=== PATIENT | male | born 1955 | race African-American/Black ===

== ENCOUNTER 2017-08-23 05:44 | Inpatient (IN) ==
[2017-08-23] MEDS ORDERED: FUROSEMIDE 40 MG/4 ML VIAL ONE (05:54)
[2017-08-23] MEDS ORDERED: hydrALAZINE 20 MG/1 ML VIAL ONE (05:54)
[2017-08-23] MEDS ORDERED: ALBUTEROL/IPRATROPIUM 3 ML NEB RESP TX STA (06:29)
[2017-08-23] MEDS ORDERED: FUROSEMIDE 40 MG/4 ML VIAL IV STA (06:36)
--- NOTE | 2017-08-23 06:39 | EKG Report ---
Stationary ECG Study [facility] ER Test Date: 08/23/2017 6:05:32 AM Pat Name: JEWELL MCCRAY Department: Room: Gender: M [employer] Survey Worker: : 1955 Requested by: Rolando Clark Order Number: [id number] Reading MD: STEVE NATH Intervals [place] Rate: 73 P: 78 LA: 194 QRS: 66 QRSD: 114 T: 119 QT: 395 QTc: 421 Interpretive Statements SINUS RHYTHM WITH OCCASIONAL VENTRICULAR PREMATURE COMPLEXES INFERIOR MYOCARDIAL INFARCTION, OLD Electronically Signed On 08-23-17 18:53:54 CDT by STEVE NATH [email or web address]
[2017-08-23 06:49] LABS: Basophils # 0.1 10*3/uL (0.0-0.2); Basophils % 0.7 % (0.0-0.8); Eosinophils # 0.2 10*3/uL (0.0-0.87); Hematocrit 48.3 VOL% (42.0-52.0); Hemoglobin 16.2 GM/DL (14.0-18.0); Immature Granulocytes % 0.4 %; Immature Granulocytes Absolute 0.03 #; Lymphocytes # 4.4 10*3/uL (1.4-4.0); Lymphocytes % 54.8 % (21.2-54.2); Mean Corpuscular HGB Conc 33.5 GM/DL (32-36); Mean Corpuscular Hemoglobin 33 PG (27-34); Mean Corpuscular Volume 97.4 FL (87-102); Mean Platelet Volume 10.9 FL (9.6-12.0); Monocytes # 0.9 10*3/uL (0.11-0.8); Monocytes % 11.4 % (1.7-12.7); Neutrophils # 2.5 10*3/uL (1.4-7.4); Neutrophils % 30.7 % (38.7-73.9); Platelet Count 280 T/CUMM (130-400); Red Blood Count 4.96 MC/CUMM (3.8-5.5); Red Cell Distribution Width 15.8 % (9.3-17.3); White Blood Count 8.1 T/CUMM (4-12)
[2017-08-23 07:27] LABS: Albumin 3.1 G/DL (3.4-5.0); Bilirubin,Total 0.6 MG/DL (0.2-1.0); Calcium 8.6 MG/DL (8.5-10.1); Osmolality,Calculated 277.5 MOS/KG (273-304); Potassium 4.1 MMOL/L (3.5-5.1)
[2017-08-23 07:31] LABS: Troponin I Only 0.053 NG/ML (0.00-0.045)
--- NOTE | 2017-08-23 08:00 | Emergency Department Note ---
Arrival - Arrival Chief Complaint: Shortness of Breath Stated Complaint: SOB ED Nursing Triage Note: Pt to triage with complaint of SOB x1 day. Pt denies current respiratory lung problems. Pt says he is also having chest pain rated as a 10 on a 0-10 scale. Pt placed on nonrebreather at 15L. Mode of Arrival: Wheelchair Time Seen by Provider: 08/23/17 06:14 - History of Present Illness HPI Narrative: This is a 62-year-old white male with a history of congestive heart failure, hypertension, previous myocardial infarction, coronary artery bypass graft surgery in 2008 and gastric ulcer who presents with shortness of breath orthopnea dyspnea on exertion of 24 hours duration. When the patient arrived he was diaphoretic and short of breath and a room air O2 sat of 60%. He was placed on BiPAP and given Lasix 80 mg intravenously and slowly improved. Allergies/Adverse Reactions: Allergies Allergy/AdvReac Type Severity Reaction Status Date / Time NEIL Inhibitors Allergy Swelling Verified 08/23/17 05:51 of Lip/Tongue/Throat Home Medications: Home Medications Medication Instructions Recorded Confirmed Type Aspirin [Ecotrin] 81 mg PO DAILY 04/19/15 08/23/17 History Carvedilol [Coreg] 25 mg PO BID 04/19/15 08/23/17 History amLODIPine [Norvasc] 10 mg PO DAILY 04/19/15 08/23/17 History hydrALAZINE TAB [Apresoline Tab] 25 mg PO TID 04/19/15 08/23/17 History hydroCHLOROthiazide 25 mg PO DAILY 04/19/15 08/23/17 History [Hydrochlorothiazide] Albuterol Sulfate [Proair HFA] 2 puff INH Q4HR 09/04/15 08/23/17 History Isosorbide Mononitrate [Isosorbide 60 mg PO DAILY 04/05/17 08/23/17 History Mononitrate ER] Rosuvastatin [Crestor] 10 mg PO DAILY 04/05/17 08/23/17 History Review of System - Review of System Constitutional: Absent: fever, night sweats Eyes: Absent: redness Head/Ears/Nose/Throat: Absent: epistaxis Respiratory: Present: cough, respiratory distress Cardiovascular: Present: chest pain, dyspnea on exertion Gastrointestinal: Absent: diarrhea, constipation Genitourinary male: Absent: dysuria, discharge Musculoskeletal: Absent: joint swelling, lower back pain Skin: Absent: change in color, change in hair/nails Neurological: Absent: numbness, paresthesias Psychiatric: Absent: anxiety, depression Endocrine: Absent: heat intolerance, polydipsia, polyuria Hematological/Lymphatic: Absent: easy bruising, lymphadenopathy Allergic/Immunologic: Absent: urticaria, itchy eyes Medical,Surgical,& Family Hx - Medical History Cardio: History of: Cardiac Dysrhythmia (thinks so, placed on monitor; can't remember (Dr. Regalado)), Hypertension, [place], Cardiovascular Problems (checked above ([place], HTN)) No history of: Aneurysm, Cerebrovascular Disease, Congenital Heart Disease, CHF, CAD, Pacemaker, PVD, Valvular Heart Disease Neurology: No history of: Brain Aneurysm, Cerebral Hemorrhage, Cerebrovascular Accident , Cerebral Palsy, Dementia, Migraine, Multiple Sclerosis, Parkinson's Disease, Peripheral Neuropathy, Seizures, TIA, Vertigo, Neurologocal Cancer Gastrointestinal: History of: Gastrointestinal Bleed (gastric ulcer), GI Problems (TARRY STOOLS AND COFFEE GROUND EMESIS x's 3 days) No history of: Bowel Obstruction, Clostridium Difficile, Crohn's Disease, Diverticulitis/ Diverticulosis, Esophageal Varices, GERD, Hemorrhoids, Hematochezia, Hepatitis, Liver Problems, Pancreatitis, Polyps, Ulcerative Colitis, Gastrointestinal Cancer Musculoskeletal: No history of: Amputation Hematology: No history of: Blood Transfusion Reaction Other: No history of: Anesthesia Reactions - Surgical History Cardiac Surgeries: Sugical HX of: Cardiac Catheterization, Cardiac Surgery ( cabg 2008) Patient Denies: Femoral-Popliteal Bypass Graft, Carotid Endarterectomy, Internal Defibrillator, Vascular Access Devices Thoracic Surgeries: Patient denies;: Kidney (Renal Surgery), Lithotripsy, Nephrectomy, Organ Transplant, Lobectomy Neurologic Surgeries: Patient denies: Brain Aneurysm, Cerebral Hemorrhage, Neurologic Surgery HEENT Surgeries: Patient denies: Carotid Endarterectomy, Eye Surgery, Tonsilectomy & Adenoidectomy Abdominal Surgeries: Patient denies: Abdominal Surgery, Appendectomy, Cholecystectomy, Colonoscopy , Gastric Bypass Surgery, EGD, Hernia Repair, Splenectomy Reproductive Surgeries: Patient denies;: Cystoscopy, Genitourinary Surgery, Prostate Surgery Orthopedic Surgeries: Patient denies;: Implanted Devices, Orthopedic Surgery, Spinal Surgery, Total Hip Replacement, Total Knee Replacement - Family History Family History: Reports;: Family Diabetes (mother, sister), Family Heart Disease (mother), Family Hypertension Denies;: Family Anesthesia Reaction, Family Cancer, Family Psychiatric Problems, Family Stroke - Social History Smoking Status: Current every day smoker Frequency of Alcohol Use: None Type of Drug Use: None Exam Vital Signs: Vital Signs Temperature 96 F L 08/23/17 05:45 Pulse Rate 60 08/23/17 08:59 Respiratory Rate 18 08/23/17 08:59 Blood Pressure 134/76 08/23/17 08:59 O2 Sat by Pulse Oximetry 96 08/23/17 08:59 - General General appearance: anxious, in distress - Head Head exam: Present: atraumatic, normocephalic - Eye Eye exam: Present: PERRL, EOMI - ENT ENT exam: Present: normal exam, normal oropharynx - Neck Neck exam: Present: normal inspection, full ROM - Chest Chest inspection: Present: normal inspection - Respiratory Respiratory exam: Present: rales - Cardiovascular Cardiovascular exam: Present: tachycardia - Abdominal Exam Abdominal exam: Present: soft, normal bowel sounds - Extremities Exam Extremities exam: Present: normal inspection - Back Exam Back exam: Present: normal inspection, full ROM - Neurological Exam Neurological exam: Present: alert, oriented X3, CN II-XII intact - Psychiatric Psychiatric exam: Present: normal affect, normal mood - Skin Skin exam: Present: warm, dry Course Course Narrative: The patient has an elevated BNP and slightly elevated troponin. Electrocardiogram does not show acute ischemic changes. The patient came in good congestive heart failure with hypoxemia was placed on BiPAP was given Lasix and his clinical picture rapidly improved. The case was discussed with the hospitalist who agreed to admit the patient to the hospital for evaluation for the cause of his acute onset congestive heart failure. Results - Labs CBC & BMP: 08/23/17 05:50 08/23/17 05:50 Disposition Clinical Impression: Congestive heart failure, Hypoxemia Disposition: Still a Patient
[2017-08-23] MEDS ORDERED: hydrALAZINE 20 MG/1 ML VIAL IV STA (08:09)
[2017-08-23 08:16] LABS: Eosinophils 2 % (0-10); Giant Platelets Few; Hypochromasia Slight; Lymphocytes 55 % (20-55); Platelet Estimate Adequate; Segmented Neutrophils 33 % (50-85); Total Cells Counted 100
--- NOTE | 2017-08-23 09:34 | Hospitalist History & Physical ---
Assessment and Plan (1) Nicotine dependence Status: Acute Assessment and plan: Spoke with patient in great detail and discussed the merits of smoking cessation. The patient acknowledges the needs to stop; however states that they "told me that 8 years ago". Nicotine patch has been ordered for use during the inpatient admission. Current Visit: Yes (2) Congestive heart failure Status: Acute Assessment and plan: The patient has extensive cardiovascular disease. The patient reported recent evaluation by his hydraulics engineer and was suggested that he may have peripheral vascular disease. At the time of ED presentation, the patient was complaining of chest discomfort and shortness of breath. The patient was diuresed and his respiratory status improved. We will resume the patient's home medications as previously ordered. In addition, we will continue gentle diuresis. We will obtain echocardiogram, lipid panel, serial cardiac enzymes, hemoglobin A1C, and consult cardiology to evaluate and assist. Current Visit: Yes History of Present Illness Chief complaint: Shortness of breath History of present illness: This is a chronically ill 62-year-old male that presented to the ED at [facility] this morning for the evaluation of shortness of breath and chest pain. Patient has a medical history significant for nicotine dependence, coronary artery disease, hypertension, peripheral vascular disease, myocardial infarction, gastric ulcer, gastrointestinal bleed, herpes zoster, and chronic sinusitis.Patient has a surgical history of cardiac catheterization , coronary artery bypass graft in 2008, colonoscopy, esophagogastroduodenoscopy. Patient reported onset of symptoms 1 day prior to admission. He reported a gradual onset of shortness of breath they became very severe this morning prompting him to present to the ED for further evaluation. At the time of ED presentation, the patient was noted to be grossly short of breath and complaining of severe chest pain. Nitroglycerin was applied topically, aspirin 325 mg by mouth was given, and supplemental oxygen via nonrebreather mask was placed. The patient's respiratory status failed to improve. The patient was subsequently placed on BiPAP. Labs were obtained which were significant for chloride 109, glucose 157, AST 178, ALT 175, alkaline phosphatase 139, troponin 0 0.053, BNP 768, albumin 3.1. Chest x-ray suggested cardiac decompensation After brief discussion with both Dr. Whalen and Dr. Mcpherson, the patient will be admitted to the hospitalist service for continuation of care. Due to the severity of the patient's cardiovascular disease a cardiology consultation has been requested to evaluate and assist during the clinical encounter. Home medications have been reviewed and reconciled. CODE STATUS discussed; patient is FULL CODE. Home Medications Medication Instructions Recorded Confirmed Type Aspirin [Ecotrin] 81 mg PO DAILY 04/19/15 04/05/17 History Carvedilol [Coreg] 25 mg PO BID 04/19/15 04/05/17 History Potassium Chloride Cap/Tab [K Dur] 10 meq PO DAILY 04/19/15 04/05/17 History amLODIPine [Norvasc] 10 mg PO DAILY 04/19/15 04/05/17 History hydrALAZINE TAB [Apresoline Tab] 25 mg PO TID 04/19/15 04/05/17 History hydroCHLOROthiazide 25 mg PO DAILY 04/19/15 04/05/17 History [Hydrochlorothiazide] Albuterol Sulfate [Proair HFA] 2 puff INH Q4HR 09/04/15 04/05/17 History Benzonatate [Tessalon] 100 mg PO Q6H 09/04/15 04/05/17 History Fluticasone 50 Mcg Nasal Mar Lin 2 spray BOTH NARES DAILY PRN 09/04/15 04/05/17 History [Flonase Nasal Mar Lin] Nitroglycerin Sl Tab [Nitrostat] 0.4 mg SL Q5M PRN 09/04/15 04/05/17 History Acyclovir Cap/Tab [Zovirax Cap/Tab] 800 mg PO 5X DAILY #35 tablet 04/05/17 Rx HYDROcodone/ACETAMIN 7.5-325 1 tablet PO Q6H PRN #20 tablet 04/05/17 Rx [[place] 7.5-325] Isosorbide Mononitrate [Isosorbide 60 mg PO DAILY 04/05/17 04/05/17 History Mononitrate ER] Rosuvastatin [Crestor] 10 mg PO DAILY 04/05/17 04/05/17 History Allergies Allergy/AdvReac Type Severity Reaction Status Date / Time NEIL Inhibitors Allergy Swelling Verified 08/23/17 05:51 of Lip/Tongue/Throat Medical,Surgical,& Family Hx - Medical History Cardio: History of: Cardiac Dysrhythmia (thinks so, placed on monitor; can't remember (Dr. Regalado)), Hypertension, [place], Cardiovascular Problems (checked above (PR, HTN)) No history of: Aneurysm, Cerebrovascular Disease, Congenital Heart Disease, CHF, CAD, Pacemaker, PVD, Valvular Heart Disease Neurology: No history of: Brain Aneurysm, Cerebral Hemorrhage, Cerebrovascular Accident , Cerebral Palsy, Dementia, Migraine, Multiple Sclerosis, Parkinson's Disease, Peripheral Neuropathy, Seizures, TIA, Vertigo, Neurologocal Cancer Gastrointestinal: History of: Gastrointestinal Bleed (gastric ulcer), GI Problems (TARRY STOOLS AND COFFEE GROUND EMESIS x's 3 days) No history of: Bowel Obstruction, Clostridium Difficile, Crohn's Disease, Diverticulitis/ Diverticulosis, Esophageal Varices, GERD, Hemorrhoids, Hematochezia, Hepatitis, Liver Problems, Pancreatitis, Polyps, Ulcerative Colitis, Gastrointestinal Cancer Musculoskeletal: No history of: Amputation Hematology: No history of: Blood Transfusion Reaction Other: No history of: Anesthesia Reactions - Surgical History Cardiac Surgeries: Sugical HX of: Cardiac Catheterization, Cardiac Surgery ( cabg 2008) Patient Denies: Femoral-Popliteal Bypass Graft, Carotid Endarterectomy, Internal Defibrillator, Vascular Access Devices Thoracic Surgeries: Patient denies;: Kidney (Renal Surgery), Lithotripsy, Nephrectomy, Organ Transplant, Lobectomy Neurologic Surgeries: Patient denies: Brain Aneurysm, Cerebral Hemorrhage, Neurologic Surgery HEENT Surgeries: Patient denies: Carotid Endarterectomy, Eye Surgery, Tonsilectomy & Adenoidectomy Abdominal Surgeries: Patient denies: Abdominal Surgery, Appendectomy, Cholecystectomy, Colonoscopy , Gastric Bypass Surgery, EGD, Hernia Repair, Splenectomy Reproductive Surgeries: Patient denies;: Cystoscopy, Genitourinary Surgery, Prostate Surgery Orthopedic Surgeries: Patient denies;: Implanted Devices, Orthopedic Surgery, Spinal Surgery, Total Hip Replacement, Total Knee Replacement - Family History Family History: Reports;: Family Diabetes (mother, sister), Family Heart Disease (mother), Family Hypertension Denies;: Family Anesthesia Reaction, Family Cancer, Family Psychiatric Problems, Family Stroke - Social History Smoking Status: Current every day smoker Have you smoked in the last 12 months: Yes Time spent discussing smoking cessation with patient: more than 10 minutes Frequency of Alcohol Use: None Type of Drug Use: None Marital Status: Single Lives With:: Alone Functional capacity: independent ambulation 12 point system: reviewed and no additional remarkable complaints except as stated Exam - Constitutional Vitals: Period Temp Pulse Resp BP Sys/Felton Pulse Ox Last 24 Hr 96 F-96 F 60-87 18-38 134-189/76-104 75-97 General appearance: mild distress, over weight - Head Head exam: Present: normal inspection, normocephalic, atraumatic - Eye Eye exam: Present: EOMI Pupils: Present: BRI, normal accommodation - ENT ENT exam: Present: normal exam, normal external ear exam, normal oropharynx - Neck Neck exam: Present: normal inspection. Absent: lymphadenopathy, meningismus, thyromegaly - Respiratory Respiratory exam: Present: rales - Cardiovascular Cardiovascular exam: Present: bradycardia. Absent: carotid bruit, diastolic murmur, gallop, JVD, regular rate and rhythm, rubs, systolic murmur - GI/Abdominal GI/Abdominal exam: Present: normal bowel sounds, soft - Extremities Exam Extremities exam: Present: normal inspection, normal capillary refill, full ROM , edema (Plus to trace edema noted to bilateral lower extremity) - Back Exam Back exam: Present: normal inspection - Neurological Exam Neurological exam: Present: alert, oriented X3, CN II-XII intact - Psychiatric Psychiatric exam: Present: normal affect, normal mood - Skin Skin exam: Present: normal color, warm, dry Results - Labs CBC & BMP: 08/23/17 05:50 08/23/17 05:50 Lab Results: I have reviewed the past 24 hour labs
[2017-08-23] MEDS ORDERED: POTASSIUM CHLORIDE RIDER 10 MEQ in PREMIX 1 EACH IV PRN (09:38)
[2017-08-23] MEDS ORDERED: MAGNESIUM SULF RIDER 4 GM in PREMIX 1 EACH IV PRN (09:38)
[2017-08-23] MEDS ORDERED: MAGNESIUM SULF RIDER 2 GM in PREMIX 1 EACH IV PRN (09:38)
[2017-08-23] MEDS ORDERED: ALBUTEROL 2.5 MG/3 ML NEB RESP TX PRN (09:38)
[2017-08-23] MEDS ORDERED: methylPREDNISolone SOD SUC 40 MG/1 ML VIAL IV SCH (10:00)
[2017-08-23 10:30] LABS: Risk Ratio 4.3; VLDL CHOLESTEROL 15.8 MG/DL
--- NOTE | 2017-08-23 10:55 | XRay Report ---
History is short of breath Comparison 07/04/2015 The heart is mildly enlarged There are mildly increasing hazy and reticular nodular opacities in the lower third of the chest bilaterally Upper lung portillo are clear Impression: 1. Increasing bilateral basilar infiltrates versus edema. Follow-up recommended PROCEDURE INTERPRETED AT [facility] DEPARTMENT OF RADIOLOGY Final Report Signed by: Dr. Gladis Collier
[2017-08-23] MEDS: amLODIPine 10 MG TABLET PO SCH (12:00)
[2017-08-23] MEDS: CARVEDILOL 25 MG TABLET PO SCH ×2 (12:00→21:20)
[2017-08-23] MEDS: NICOTINE 21 MG/24 HR PATCH TRANSDERM SCH (12:01)
[2017-08-23] MEDS: ALBUTEROL/IPRATROPIUM 3 ML NEB RESP TX SCH ×2 (12:16→19:25)
--- NOTE | 2017-08-23 13:32 | ECHO Report ---
Claudy Wilcox Exam Date: 08/23/2017 11:05 Referring Physician: Technologist: Mariana Hargrove LRTONI Age: 62 Ht (in): 69 Wt (lb): 276 Gender: M Exam Location: [facility] Echo Indications: nicotine dependence, hypoxemia, acute gastric ulcer, sob, CAD, anemia, melena BP: 170 / 74 HR: 62 Rhythm: Sinus Technical Quality: IMPRESSIONS Left ventricular ejection fraction is estimated at 50 %. There is limited endocardial resolution however in some views there may be mild inferior wall hypokinesis. Mild concentric left ventricular hypertrophy with Grade 2 diastolic dysfunction. Aortic valve area is 0.94 cm. Aortic valve mean gradient is 34 mmHg. Moderate aortic valve regurgitation with pressure halftime from 428 msec to 529 msec. Mild tricuspid valve regurgitation. Tricuspid regurgitation velocities suggest a RVSP of 23 mmHg + RAP. MEASUREMENTS (Male / Female) Normal Values 2D ECHO LV Diastolic Diameter PLAX 5.4 cm 4.2 - 5.9 / 3.9 - 5.3 cm LV Systolic Diameter PLAX 3.9 cm LV Fractional Shortening PLAX 28.7 % IVS Diastolic Thickness 1.3 cm 0.6 - 1.0 / 0.6 - 0.9 cm LVPW Diastolic Thickness 1.3 cm 0.6 - 1.0 / 0.6 - 0.9 cm Aortic Root Diameter 2.9 cm LA Systolic Diameter LX 4.9 cm 3.0 - 4.0 / 2.7 - 3.8 cm DOPPLER TR Peak Velocity 239.0 cm/s TR Peak Gradient 22.8 mmHg FINDINGS Left Ventricle Mild concentric left ventricular hypertrophy with Grade 2 diastolic dysfunction. Left ventricular ejection fraction is estimated at 50 %. There is limited endocardial resolution however in some views there may be mild inferior wall hypokinesis. Right Ventricle Normal right ventricular size. Right Atrium Normal right atrial size. Left Atrium Moderately increased left atrial diameter. Mitral Valve Mildly thickened mitral valve with mild mitral regurgitation. Aortic Valve Moderate to severe aortic valve stenosis. Aortic valve area is 0.94 cm. Aortic valve mean gradient is 34 mmHg. Moderate aortic valve regurgitation with pressure halftime from 428 msec to 529 msec.. Tricuspid Valve Morphologically normal tricuspid valve. Mild tricuspid valve regurgitation. Tricuspid regurgitation velocities suggest a RVSP of 23 mmHg + RAP. Pulmonic Valve Pulmonic valve not well visualized. Trace pulmonary valve regurgitation. Pericardium No pericardial effusion. Aorta Normal size aortic root and proximal ascending aorta. Mary Alice Paez (Electronically Signed) Final Date: 23 August 2017 13:31
[2017-08-23 13:49] LABS: Immunoglobulin A 851 MG/DL (70-400); Immunoglobulin G 1590 MG/DL (700-1600); Immunoglobulin M 63 MG/DL (40-230)
[2017-08-23] MEDS: FUROSEMIDE 40 MG/4 ML VIAL IV SCH (15:19)
[2017-08-23] MEDS: hydrALAZINE 25 MG TABLET PO SCH ×2 (15:31→21:20)
[2017-08-23 15:40] LABS: Hepatitis A Ab IgM Quant 0.14 Index; Hepatitis A Ab IgM Result Negative (Negative); Hepatitis B Core IgM Quant 0.11 Index; Hepatitis B Core IgM Result Negative (Negative); Hepatitis B Surface Ag Quant 0.12 Index; Hepatitis B Surface Ag Result Negative (Negative); Hepatitis C Virus Ab Quant 0.07 Index; Hepatitis C Virus Ab Result Negative (Negative)
[2017-08-24] MEDS: ALBUTEROL/IPRATROPIUM 3 ML NEB RESP TX SCH ×4 (01:17→20:45)
[2017-08-24 04:32] LABS: Basophils % 0.2 % (0.0-0.8); Hemoglobin 13.8 GM/DL (14.0-18.0); Immature Granulocytes % 0.6 %; Immature Granulocytes Absolute 0.03 #; Lymphocytes # 1.1 10*3/uL (1.4-4.0); Lymphocytes % 21.2 % (21.2-54.2); Mean Corpuscular HGB Conc 34.5 GM/DL (32-36); Mean Corpuscular Hemoglobin 32 PG (27-34); Mean Corpuscular Volume 93.5 FL (87-102); Mean Platelet Volume 10.7 FL (9.6-12.0); Monocytes # 0.5 10*3/uL (0.11-0.8); Monocytes % 10.4 % (1.7-12.7); Neutrophils # 3.5 10*3/uL (1.4-7.4); Neutrophils % 67.6 % (38.7-73.9); Platelet Count 219 T/CUMM (130-400); Red Blood Count 4.28 MC/CUMM (3.8-5.5); Red Cell Distribution Width 15.2 % (9.3-17.3); White Blood Count 5.2 T/CUMM (4-12)
[2017-08-24 05:06] LABS: Magnesium 1.8 MG/DL (1.8-2.4); Phosphorous 2.8 MG/DL (2.5-4.9)
[2017-08-24 05:08] LABS: Albumin 2.8 G/DL (3.4-5.0); Bilirubin,Total 0.7 MG/DL (0.2-1.0); Calcium 8.6 MG/DL (8.5-10.1); Osmolality,Calculated 287.3 MOS/KG (273-304); Potassium 3.6 MMOL/L (3.5-5.1); Total Protein 7.1 G/DL (6.4-8.3)
[2017-08-24] MEDS ORDERED: hydroCHLOROthiazide 25 MG TABLET PO SCH (09:00)
[2017-08-24] MEDS: FUROSEMIDE 40 MG/4 ML VIAL IV SCH ×2 (09:35→15:40)
[2017-08-24] MEDS: CARVEDILOL 25 MG TABLET PO SCH ×2 (09:36→20:55)
[2017-08-24] MEDS: amLODIPine 10 MG TABLET PO SCH (09:36)
[2017-08-24] MEDS: ISOSORBIDE MONONITRATE 60 MG TABLET PO SCH (09:36)
[2017-08-24] MEDS: ASPIRIN EC 81 MG TABLET PO SCH (09:36)
[2017-08-24] MEDS: NICOTINE 21 MG/24 HR PATCH TRANSDERM SCH (09:36)
[2017-08-24] MEDS: ROSUVASTATIN 10 MG TABLET PO SCH (09:36)
[2017-08-24] MEDS: hydrALAZINE 25 MG TABLET PO SCH ×3 (09:36→20:55)
--- NOTE | 2017-08-24 09:53 | Cardiology Consult Note ---
Assessment and Plan - Time spent with patient Time spent with patient: Greater than 30 minutes (Chart review, exam, documentation and patient discussion) (1) Ischemic cardiomyopathy Status: Chronic Current Visit: Yes (2) Aortic stenosis Status: Chronic Current Visit: Yes Qualifiers: Cardiac valve disease etiology: nonrheumatic Qualified Code(s): I35.0 - Nonrheumatic aortic (valve) stenosis (3) Aortic insufficiency Status: Chronic Current Visit: Yes (4) COPD (chronic obstructive pulmonary disease) Status: Chronic Current Visit: Yes Qualifiers: Emphysema type: unspecified (5) Hepatitis Status: Chronic Current Visit: Yes (6) Peptic ulcer disease Status: Chronic Current Visit: Yes (7) NEIL inhibitor intolerance Status: Chronic Current Visit: Yes (8) Peripheral vascular disease Status: Chronic Current Visit: Yes (9) Dyslipidemia Status: Chronic Current Visit: Yes (10) Congestive heart failure Status: Acute Current Visit: Yes (11) Nicotine dependence Status: Acute Current Visit: Yes (12) Coronary artery disease Status: Chronic Current Visit: No Qualifiers: Coronary Disease-Associated Artery/Lesion type: bypass graft [place] vs. transplanted heart: [place] heart Associated angina: without angina Qualified Code(s): I25.810 - Atherosclerosis of coronary artery bypass graft(s) without angina pectoris History of Present Illness - Data of Consult Patient: known to practice within the last 3 years Consult date: 08/24/17 Requesting Physician: Cristhian Mcpherson Primary care physician: Matt Deluna (Cards - JRod) - Consult Narrative Reason for consult: Heart failure History of present illness: Mr. Wilcox is a 62 year old male with known severe coronary disease following the outpatient setting by Dr. Gabriela Regalado. The patient had coronary bypass grafting by Dr. Gurmeet Azul in 2008. He presents now for worsening dyspnea on exertion and shortness of breath. He denies chest pain he had an EKG shows inferior Q waves he has an echocardiogram shows an ejection fraction of 50% with inferior wall hypokinesis. He is previously had an ejection fraction as low as 40% with severe inferior hypokinesis and mild anterior hypokinesis. His last transthoracic echocardiogram in the office. There is no mention in that study of regional wall motion abnormality.Done on 11/14/2016 showed an ejection fraction of 50-55%. At that time his valve area was estimated to be 0.9 cm and aortic insufficiency was described as mild. His current transthoracic echo is similar however there appears to be slight worsening of his AI. His last left heart catheterization was on 06/10/2013 at [facility] at which time his ejection fraction was 40% was indicated at that time he had severe inferior wall hypokinesis and mild anterior hypokinesis. The heart cath at that time showed 30% distal left main 40% proximal LAD 40% proximal circumflex and mild plaquing in the distal circumflex had a high-grade mid LAD and a patent stent in the first diagonal. His right coronary was 100% occluded as were both of his vein grafts is only patent conduit from his bypass graft was a in situ LYNCH to the LAD. [place] at that cath was in the right femoral artery. The patient denies any chest pain but has had more shortness of breath he continues to smoke. He has had some orthopnea as well. He denies any chest pain. The patient presents for further evaluation. He has a mildly stagnant only elevated troponin echo and EKG as described above. The patient was last seen in the office by Dr. Gabriela Regalado on 08/21/2017 at which time he was scheduled to follow-up in October with ABIs echocardiography and routine labs. Patient was doing well until he recently awakened with dyspnea. He had mild volume overload by his chest radiograph. He denied any chest pain. He states think he can walk as far as he needs to as long as he walks with a slow pace but if he walks at a brisk pace he gets extremely dyspneic with minimal activity. This sounds like this is approximately [place] Heart Association class III symptoms. This is likely from his [place] of the RCA in conjunction with his aortic valvular heart disease. His right-sided pressures appear to be normal. I discussed with the patient and his sister have recommended left heart catheterization because of his acutely becomes a heart failure this may be from his valvular disease or underlying ischemic progressive disease. He is agreeable to proceed. We will arrange for him to have a left heart catheterization in the morning. CC: Abraham Gabriel MD - Home Medications and Allergies Home Medications: Home Medications Medication Instructions Recorded Confirmed Type Aspirin [Ecotrin] 81 mg PO DAILY 04/19/15 08/23/17 History Carvedilol [Coreg] 25 mg PO BID 04/19/15 08/23/17 History amLODIPine [Norvasc] 10 mg PO DAILY 04/19/15 08/23/17 History hydrALAZINE TAB [Apresoline Tab] 25 mg PO TID 04/19/15 08/23/17 History hydroCHLOROthiazide 25 mg PO DAILY 04/19/15 08/23/17 History [Hydrochlorothiazide] Albuterol Sulfate [Proair HFA] 2 puff INH Q4HR 09/04/15 08/23/17 History Isosorbide Mononitrate [Isosorbide 60 mg PO DAILY 04/05/17 08/23/17 History Mononitrate ER] Rosuvastatin [Crestor] 10 mg PO DAILY 04/05/17 08/23/17 History Allergies/Adverse Reactions: Allergies Allergy/AdvReac Type Severity Reaction Status Date / Time NEIL Inhibitors Allergy Swelling Verified 08/23/17 05:51 of Lip/Tongue/Throat - Constitutional Constitutional: Absent: anorexia, chills, weight gain, weight loss - EENT Eyes: Absent: diplopia, loss of vision Ears: Absent: decreased hearing, ear discharge Nose, mouth and throat: Absent: dysphagia, nasal congestion - Cardiovascular Cardiovascular: Present: claudication, dyspnea, dyspnea on exertion, orthopnea. Absent: chest pain at rest, chest pain with activity, edema - Respiratory Respiratory: Present: dyspnea, dyspnea on exertion, snoring - Gastrointestinal Gastrointestinal: Absent: abdominal pain, dyspepsia, melena, nausea, odynophagia - Genitourinary Genitourinary: Absent: difficulty urinating, hematuria, nocturia, testicular pain - Musculoskeletal Musculoskeletal: Absent: arthralgias, joint swelling - Neurological Neurological: Absent: abnormal gait, disequilibrium - Psychiatric Psychiatric: Absent: difficulty concentrating - Endocrine Endocrine: Absent: cold intolerance, heat intolerance - Hematologic/Lymphatic Hematologic/Lymphatic: Absent: easy bleeding, easy bruising Medical,Surgical,& Family Hx - Medical History Cardio: History of: Cardiac Dysrhythmia (thinks so, placed on monitor; can't remember (Dr. Regalado)), Hypertension, [place], Cardiovascular Problems (/AI) No history of: Aneurysm, Cerebrovascular Disease, Congenital Heart Disease, CHF, CAD, Pacemaker, PVD, Valvular Heart Disease Neurology: No history of: Brain Aneurysm, Cerebral Hemorrhage, Cerebrovascular Accident , Cerebral Palsy, Dementia, Migraine, Multiple Sclerosis, Parkinson's Disease, Peripheral Neuropathy, Seizures, TIA, Vertigo, Neurologocal Cancer Gastrointestinal: History of: Gastrointestinal Bleed (gastric ulcer), GI Problems (TARRY STOOLS AND COFFEE GROUND EMESIS x's 3 days) No history of: Bowel Obstruction, Clostridium Difficile, Crohn's Disease, Diverticulitis/ Diverticulosis, Esophageal Varices, GERD, Hemorrhoids, Hematochezia, Hepatitis, Liver Problems, Pancreatitis, Polyps, Ulcerative Colitis, Gastrointestinal Cancer Musculoskeletal: No history of: Amputation Hematology: No history of: Blood Transfusion Reaction Other: No history of: Anesthesia Reactions - Surgical History Cardiac Surgeries: Sugical HX of: Cardiac Catheterization, Cardiac Surgery ( cabg 2008) Patient Denies: Femoral-Popliteal Bypass Graft, Carotid Endarterectomy, Internal Defibrillator, Vascular Access Devices Thoracic Surgeries: Patient denies;: Kidney (Renal Surgery), Lithotripsy, Nephrectomy, Organ Transplant, Lobectomy Neurologic Surgeries: Patient denies: Brain Aneurysm, Cerebral Hemorrhage, Neurologic Surgery HEENT Surgeries: Patient denies: Carotid Endarterectomy, Eye Surgery, Tonsilectomy & Adenoidectomy Abdominal Surgeries: Patient denies: Abdominal Surgery, Appendectomy, Cholecystectomy, Colonoscopy , Gastric Bypass Surgery, EGD, Hernia Repair, Splenectomy Reproductive Surgeries: Patient denies;: Cystoscopy, Genitourinary Surgery, Prostate Surgery Orthopedic Surgeries: Patient denies;: Implanted Devices, Orthopedic Surgery, Spinal Surgery, Total Hip Replacement, Total Knee Replacement - Family History Family History: Reports;: Family Diabetes (mother, sister), Family Heart Disease (mother), Family Hypertension Denies;: Family Anesthesia Reaction, Family Cancer, Family Psychiatric Problems, Family Stroke - Social History Smoking Status: Current every day smoker Frequency of Alcohol Use: None Type of Drug Use: None Marital Status: Single Lives With:: Significant Other Functional capacity: independent ambulation Physical Examination Vital Signs Temp Pulse Resp BP Pulse Ox 96 F L 87 28 H 189/104 75 L 08/23/17 05:45 08/23/17 05:45 08/23/17 05:45 08/23/17 05:45 08/23/17 05:45 General: Present: Appears Well, Other (He is obese) HEENT: Absent: Jaundice, Pallor Neck: Present: Supple Neck, Midline Trachea Cardiac: Present: Reg Rate and Rhythm, S1/S2, Systolic Murmur (Has a murmur of and AI. He has a single second heart sound) Lungs: Present: Scattered Rhonchi Neuro: Present: Cranial Nerve 2-12 Intact Abdomen: Present: Soft, Active Bowel Sounds Skin: Present: Clear Extremities: Present: Normal Gait, No Clubbing. Absent: Edema Result/EKG - Labs CBC & BMP: 08/24/17 03:15 08/24/17 03:16 Labs: Laboratory Results - last 24 hr 08/23/17 08/23/17 08/23/17 09:52 09:52 09:52 WBC RBC Hgb Hct MCV MCH MCHC RDW Plt Count MPV Neut % (Auto) Lymph % (Auto) Moore % (Auto) Eos % (Auto) Baso % (Auto) Neut # (Auto) Lymph # (Auto) Moore # (Auto) Eos # (Auto) Baso # (Auto) Immature Gran % Nucleated RBC % Immature Gran # Nucleated RBCs # Immature Plt Fraction Sodium Potassium Chloride Carbon Dioxide Anion Gap BUN Creatinine GFR Calculation BUN/Creatinine Ratio Glucose Hemoglobin A1c 5.9 Calculated Osmolality Calcium Phosphorus Magnesium Total Bilirubin AST ALT Alkaline Phosphatase Troponin I 0.266 H D Total Protein Albumin Globulin Albumin/Globulin Ratio Triglycerides 79 Cholesterol 189 LDL Cholesterol 127.0 VLDL Cholesterol 15.8 HDL Cholesterol 44 Heart Disease Risk Ratio 4.30 IgG IgA IgM Hepatitis A IgM Ab Hep Bs Antigen Hep B Core IgM Ab Hepatitis C Antibody 08/23/17 08/23/17 08/23/17 12:53 12:53 12:53 WBC RBC Hgb Hct MCV MCH MCHC RDW Plt Count MPV Neut % (Auto) Lymph % (Auto) Moore % (Auto) Eos % (Auto) Baso % (Auto) Neut # (Auto) Lymph # (Auto) Moore # (Auto) Eos # (Auto) Baso # (Auto) Immature Gran % Nucleated RBC % Immature Gran # Nucleated RBCs # Immature Plt Fraction Sodium Potassium Chloride Carbon Dioxide Anion Gap BUN Creatinine GFR Calculation BUN/Creatinine Ratio Glucose Hemoglobin A1c Calculated Osmolality Calcium Phosphorus Magnesium Total Bilirubin AST ALT Alkaline Phosphatase Troponin I 0.310 H Total Protein Albumin Globulin Albumin/Globulin Ratio Triglycerides Cholesterol LDL Cholesterol VLDL Cholesterol HDL Cholesterol Heart Disease Risk Ratio IgG 1590 IgA 851 H IgM 63 Hepatitis A IgM Ab Negative Hep Bs Antigen Negative Hep B Core IgM Ab Negative Hepatitis C Antibody Negative 08/24/17 08/24/17 08/24/17 03:15 03:15 03:16 WBC 5.2 D RBC 4.28 Hgb 13.8 L D Hct 40.0 L MCV 93.5 MCH 32 MCHC 34.5 RDW 15.2 Plt Count 219 D MPV 10.7 Neut % (Auto) 67.6 Lymph % (Auto) 21.2 Moore % (Auto) 10.4 Eos % (Auto) 0.0 Baso % (Auto) 0.2 Neut # (Auto) 3.5 Lymph # (Auto) 1.1 L Moore # (Auto) 0.5 Eos # (Auto) 0.0 Baso # (Auto) 0.0 Immature Gran % 0.6 Nucleated RBC % 0.0 Immature Gran # 0.03 Nucleated RBCs # 0.00 Immature Plt Fraction 0.0 Sodium 141 Potassium 3.6 Chloride 107 Carbon Dioxide 26 Anion Gap 11.6 BUN 14 Creatinine 0.80 GFR Calculation 154 BUN/Creatinine Ratio 17.00 Glucose 205 H Hemoglobin A1c Calculated Osmolality 287.3 Calcium 8.6 Phosphorus 2.8 Magnesium 1.8 Total Bilirubin 0.70 AST 119 H ALT 142 H Alkaline Phosphatase 112 Troponin I Total Protein 7.1 Albumin 2.8 L Globulin 4.3 H Albumin/Globulin Ratio 0.6 L Triglycerides Cholesterol LDL Cholesterol VLDL Cholesterol HDL Cholesterol Heart Disease Risk Ratio IgG IgA IgM Hepatitis A IgM Ab Hep Bs Antigen Hep B Core IgM Ab Hepatitis C Antibody - EKG EKG results: interpreted by me (inferior Q waves) Specialty Discharge - Follow Up or Referrals
[2017-08-24] MEDS ORDERED: diphenhydrAMINE CAP 25 MG CAPSULE PO ONE (10:05)
[2017-08-24] MEDS ORDERED: DIAZEPAM 5 MG TABLET PO ONE (10:05)
--- NOTE | 2017-08-24 11:38 | Hospitalist Progress Note ---
Assessment and Plan (1) Congestive heart failure Status: Acute Assessment and plan: Anticipate left heart cath tomorrow morning. Continue diuretic therapy and outpatient medicines for now. Current Visit: Yes Qualifiers: Congestive heart failure type: systolic Congestive heart failure chronicity : acute on chronic Qualified Code(s): I50.23 - Acute on chronic systolic ( congestive) heart failure Hospitalist: Subjective Interval history: The patient was admitted to the hospital with heart failure symptoms. The patient has less shortness of breath today after IV diuretic medications. I reviewed the plan of care with himself and his family at the room. Dr. Paez anticipates left heart cath in the morning. Exam - Constitutional Vitals: Period Temp Pulse Resp BP Sys/Felton Pulse Ox Last 24 Hr 96.4 F-99.1 F 51-72 16-20 132-170/73-85 89-99 General appearance: no acute distress - Respiratory Respiratory exam: Present: clear to auscultation bilaterally - Cardiovascular Cardiovascular exam: Present: regular rate and rhythm - GI/Abdominal GI/Abdominal exam: Present: normal bowel sounds Results - Labs CBC & BMP: 08/24/17 03:15 08/24/17 03:16 Lab Results: I have reviewed the past 24 hour labs Specialty Discharge - Follow Up or Referrals
--- NOTE | 2017-08-24 11:46 | XRay Report ---
Portable chest Exam date: 08/24/2017 518 AM Indication: Shortness of breath, cough Comparison: Previous day at 0604 hours Findings: Cardiomediastinal contours are stable with sternotomy wires and midline. Reticular nodular interstitial and parenchymal opacities within the lung bases are slightly improved. No acute osseous abnormalities. Visualized upper abdomen demonstrates no acute pathology. Impression: Improving interstitial and parenchymal densities within the lung bases PROCEDURE INTERPRETED AT [facility] DEPARTMENT OF RADIOLOGY Final Report Signed by: Robert Cronin
[2017-08-25] MEDS: ALBUTEROL/IPRATROPIUM 3 ML NEB RESP TX SCH ×4 (01:06→20:28)
[2017-08-25 05:12] LABS: Basophils % 0.6 % (0.0-0.8); Eosinophils # 0.1 10*3/uL (0.0-0.87); Eosinophils % 1.6 % (0.00-10.9); Hematocrit 39.8 VOL% (42.0-52.0); Hemoglobin 13.6 GM/DL (14.0-18.0); Immature Granulocytes % 0.3 %; Immature Granulocytes Absolute 0.02 #; Lymphocytes # 2.5 10*3/uL (1.4-4.0); Lymphocytes % 40.5 % (21.2-54.2); Mean Corpuscular HGB Conc 34.2 GM/DL (32-36); Mean Corpuscular Hemoglobin 32 PG (27-34); Mean Corpuscular Volume 94.1 FL (87-102); Mean Platelet Volume 10.3 FL (9.6-12.0); Monocytes # 0.9 10*3/uL (0.11-0.8); Monocytes % 13.6 % (1.7-12.7); Neutrophils # 2.7 10*3/uL (1.4-7.4); Neutrophils % 43.4 % (38.7-73.9); Platelet Count 234 T/CUMM (130-400); Red Blood Count 4.23 MC/CUMM (3.8-5.5); Red Cell Distribution Width 15.4 % (9.3-17.3); White Blood Count 6.2 T/CUMM (4-12)
[2017-08-25 05:45] LABS: Calcium 8.4 MG/DL (8.5-10.1); Osmolality,Calculated 283.1 MOS/KG (273-304); Potassium 3.7 MMOL/L (3.5-5.1)
[2017-08-25] MEDS: SODIUM CHLORIDE 0.45% 1,000 ML IV SCH ×2 (06:00→20:59)
[2017-08-25 07:23] LABS: Immunoglobulin A (Chem) 851 MG/DL (70-400); Immunoglobulin G (Chem) 1590 MG/DL (700-1600); Immunoglobulin M (Chem) 63 MG/DL (40-230)
[2017-08-25] MEDS ORDERED: HEPARIN/NACL 0.9% 2 UNITS/ML 1,000 ML IV ONE (08:20)
[2017-08-25] MEDS ORDERED: LIDOCAINE 1% 20 ML VIAL ONE (08:20)
[2017-08-25] MEDS ORDERED: DIAZEPAM 5 MG TABLET ONE (08:22)
[2017-08-25] MEDS ORDERED: diphenhydrAMINE CAP 50 MG CAPSULE ONE (08:22)
[2017-08-25] MEDS: FUROSEMIDE 40 MG/4 ML VIAL IV SCH ×2 (08:26→15:05)
[2017-08-25] MEDS: CARVEDILOL 25 MG TABLET PO SCH ×2 (08:27→20:59)
[2017-08-25] MEDS: amLODIPine 10 MG TABLET PO SCH (08:29)
[2017-08-25] MEDS: ASPIRIN EC 81 MG TABLET PO SCH (08:29)
[2017-08-25] MEDS: ROSUVASTATIN 10 MG TABLET PO SCH (08:29)
[2017-08-25] MEDS: ISOSORBIDE MONONITRATE 60 MG TABLET PO SCH (08:29)
[2017-08-25] MEDS: hydrALAZINE 25 MG TABLET PO SCH (08:29)
[2017-08-25] MEDS ORDERED: HYDROmorphone 2 MG/1 ML VIAL ONE (08:39)
[2017-08-25] MEDS ORDERED: MIDAZOLAM 2 MG/2 ML VIAL ONE (08:40)
[2017-08-25] MEDS ORDERED: SODIUM CHLORIDE 0.9% 1,000 ML IV SCH (09:30)
--- NOTE | 2017-08-25 10:14 | Cardiac Catheterization ---
Date of Procedure:: 08/25/17 Procedure: CLINICAL SUMMARY: The patient has known multivessel coronary artery disease with previous bypass surgery. He presented with new/worsening congestive heart failure and a mild bump in cardiac enzymes. He is undergoing cardiac catheterization for definitive coronary artery assessment and possible revascularization. PROCEDURES PERFORMED: 1. Right femoral percutaneous arteriotomy 2. Left heart catheterization. 3. Resting hemodynamics. 4. Left ventriculography. 5. Coronary arteriography. 6. Right femoral arteriogram. 7. Angio-Seal closure of the right femoral artery. 8. Coronary artery bypass graft angiography. DESCRIPTION OF PROCEDURE: After obtaining informed consent, the patient was brought to the cardiac catheterization lab where the right groin was prepped and draped in the usual sterile manner. Using IV sedation, local anesthesia, and Modified Seldinger technique, a needle was placed in the right femoral artery and a sheath was positioned without difficulty. A left coronary catheter was advanced over a guidewire under fluoroscopic control to the ascending aorta where angiograms of the left coronary artery were undertaken in multiple views. After adequate angiograms, this catheter was withdrawn and a right coronary catheter was advanced over a guidewire under fluoroscopic control to the ascending aorta with angiograms of the RCA were undertaken in numerous projections. After adequate angiograms, this catheter was removed and a pigtail ventriculographic catheter was advanced over a guidewire under fluoroscopic control to the aortic valve and left ventricular pressures were measured. After adequate pressures were measured, this catheter was used to perform left ventriculography in the BELL projection. This catheter was then withdrawn under hemodynamic monitoring and removed from the patient. A right femoral arteriogram was performed showing severe iliofemoral arterial disease. The sheath was then removed and hemostasis was achieved with direct pressure. The patient was transferred back to the room having suffered no immediate complications. HEMODYNAMICS: See the accompanying data sheet. CORONARY ARTERIOGRAPHY: LEFT MAIN: The left main coronary artery is a large caliber vessel, which trifurcates into the left anterior descending, ramus intermedius, and left circumflex coronary arteries. The left main coronary artery has an eccentric 50 % stenosis in its mid segment. LEFT CIRCUMFLEX: The left circumflex coronary artery is a moderate-sized vessel which gives off 2 moderate-sized obtuse marginal branches. The first obtuse marginal is occluded in its mid segment with faint collateral filling distally. The proximal circumflex coronary artery has diffuse disease of up to 40%. RAMUS INTERMEDIUS: This is a large-caliber vessel which courses over the anterolateral wall. There is an area of stenosis of around 70-80% in the mid segment of this vessel. LEFT ANTERIOR DESCENDING: The left anterior descending artery is large caliber vessel which diffuse disease in the proximal area with competitive filling distally from the patent left internal mammary artery. RIGHT CORONARY ARTERY: The right coronary artery is occluded at its origin. Saphenous vein graft to right coronary artery: This graft is occluded at its origin. Saphenous vein graft to the circumflex: This graft is occluded at its origin. Left internal mammary to left anterior descending graft: This graft is widely patent throughout its course. LEFT VENTRICULOGRAPHY: Left ventricular ejection fraction is estimated at approximately 45% with mild global hypokinesis. PERIPHERAL ARTERIOGRAPHY: Right femoral arteriogram shows occlusion of the vessel just distal to the catheter placement with extensive calcification. There is collateral filling. IMPRESSIONS: 1. Left main and three-vessel coronary artery disease as described above. 2. 2 of 3 bypass grafts are in the right coronary artery occluded. The left internal mammary artery graft to the left anterior descending artery is widely patent. 3. Moderate to severe aortic stenosis. Peak to peak gradient on this study was approximately 30 mmHg. 4. Mildly reduced left ventricular ejection fraction of approximately 45%. 5. Severe right iliofemoral arterial disease as described above. PLAN: At this time, the patient has diffuse coronary and peripheral vascular disease. For now, I am going to try to manage the patient with optimal medical therapy. I will discuss with him the possibility of needing an aortic valve procedure in the future. If he does get an aortic valve procedure revascularization of the ramus intermedius, obtuse marginal/circumflex, and right coronary arteries could be considered. He could also be considered for formal peripheral vascular studies and/or revascularization depending on his clinical symptoms. Smoking cessation and compliance will be addressed with the patient as well. Anesthesia: minimal conscious sedation Surgeon / Physician: Earl Blackman Estimated blood loss: minimal Condition: stable Disposition: floor - Medications / Follow-up
[2017-08-25] MEDS: NICOTINE 21 MG/24 HR PATCH TRANSDERM SCH (10:35)
[2017-08-25] MEDS ORDERED: ACETAMINOPHEN 325 MG TABLET PO PRN (14:52)
--- NOTE | 2017-08-25 15:00 | Hospitalist Progress Note ---
Assessment and Plan (1) Coronary artery disease Status: Chronic Current Visit: Yes Qualifiers: Coronary Disease-Associated Artery/Lesion type: bypass graft [place] vs. transplanted heart: [place] heart Associated angina: without angina Qualified Code(s): I25.810 - Atherosclerosis of coronary artery bypass graft(s) without angina pectoris (2) Ischemic cardiomyopathy Status: Chronic Assessment and plan: EF 45% with grade 2 diastolic dysfunction. Current Visit: Yes (3) Tobacco use disorder Status: Acute Current Visit: Yes (4) COPD (chronic obstructive pulmonary disease) Status: Chronic Current Visit: Yes Qualifiers: Emphysema type: unspecified (5) NEIL inhibitor intolerance Status: Chronic Current Visit: Yes Hospitalist: Subjective Interval history: Patient seen and examined. No acute events overnight. Case discussed with nursing staff. Labs reviewed. Patient seen status post a left heart cath. Report noted with significant vascular abnormalities without potential for intervention. Continue aggressive medical management including smoking cessation. This was discussed with the patient for 4 minutes. He reports a headache, not related to the smoking cessation counseling. Exam - Constitutional Vitals: Period Temp Pulse Resp BP Sys/Felton Pulse Ox Last 24 Hr 96.6 F-98.6 F 46-75 16-20 96-151/43-77 90-99 Exam: Constitutional System: No distress. No tremulousness. Head: Normocephalic, atraumatic. Ears, Nose and Throat System: No pain or tenderness. No epistaxis or discharge Eyes System: Pupils equal, round, and reactive. Extraocular muscles intact. Neck: Supple, without adenopathy, No jugular venous distention. No thyromegaly, neck mass, or prior surgery apparent. Respiratory System: Chest clear to auscultation. Cardiovascular System: Heart with regular rate and rhythm. No murmur. GI System: Abdomen soft, nontender. Normo active bowel sounds present. Musculoskeletal System: limbs with no pedal edema. Full distal pulses. Normal capillary refill. Neurological System: No discernable sensory deficit. No aphasia Psychiatric System: Conversation is rational Results - Labs CBC & BMP: 08/25/17 04:33 08/25/17 04:33 Lab Results: I have reviewed the past 24 hour labs Specialty Discharge - Follow Up or Referrals
[2017-08-26] MEDS: ALBUTEROL/IPRATROPIUM 3 ML NEB RESP TX SCH ×3 (00:14→12:00)
[2017-08-26 05:15] LABS: Basophils % 0.3 % (0.0-0.8); Eosinophils # 0.1 10*3/uL (0.0-0.87); Hematocrit 38.6 VOL% (42.0-52.0); Hemoglobin 13.5 GM/DL (14.0-18.0); Immature Granulocytes % 0.3 %; Immature Granulocytes Absolute 0.02 #; Lymphocytes # 2.3 10*3/uL (1.4-4.0); Lymphocytes % 37.5 % (21.2-54.2); Mean Corpuscular Hemoglobin 33 PG (27-34); Mean Corpuscular Volume 94.1 FL (87-102); Mean Platelet Volume 10.8 FL (9.6-12.0); Monocytes # 0.8 10*3/uL (0.11-0.8); Monocytes % 13.1 % (1.7-12.7); Neutrophils # 2.9 10*3/uL (1.4-7.4); Neutrophils % 46.8 % (38.7-73.9); Platelet Count 243 T/CUMM (130-400); Red Cell Distribution Width 15.3 % (9.3-17.3); White Blood Count 6.1 T/CUMM (4-12)
[2017-08-26 06:02] LABS: Calcium 8.2 MG/DL (8.5-10.1); Magnesium 1.8 MG/DL (1.8-2.4); Osmolality,Calculated 280.3 MOS/KG (273-304); Potassium 3.9 MMOL/L (3.5-5.1)
[2017-08-26] MEDS: NICOTINE 21 MG/24 HR PATCH TRANSDERM SCH (09:01)
[2017-08-26] MEDS: ROSUVASTATIN 10 MG TABLET PO SCH (09:01)
[2017-08-26] MEDS: ASPIRIN EC 81 MG TABLET PO SCH (09:01)
[2017-08-26] MEDS: CARVEDILOL 25 MG TABLET PO SCH (09:01)
[2017-08-26] MEDS: amLODIPine 10 MG TABLET PO SCH (09:02)
[2017-08-26] MEDS: ISOSORBIDE MONONITRATE 60 MG TABLET PO SCH (09:02)
[2017-08-26] MEDS: FUROSEMIDE 40 MG/4 ML VIAL IV SCH ×2 (09:23→16:35)
--- NOTE | 2017-08-26 09:29 | Physician Query Form ---
CLICK EDIT DOCUMENT TO SELECT QUERY ANSWER --> OK --> SIGN Yohana Hernandez RN, CCDS Certified [employer] W) [phone] (f) [phone] [email or web address] PROVIDERS: Make your selection(s) from the choices in EACH section by typing an "x" and enter comments in the comment section. Please use your independent medical judgment in providing your response. This request does not imply that any particular answer is desired or expected. CLINICAL INDICATORS: (Providers should not edit this section) The medical record indicates that the patient was admitted with congestive heart failure, hypoxemia, "respiratory distress", "shortness of breath", "orthopnea dyspnea on exertion of 24 hours duration", "room air O2 sat of 60%", and "placed on BiPAP". PER ER note: "hypoxemia was placed on BiPAP was given Lasix and his clinical picture rapidly improved". If possible, please further clarify the type and acuity of respiratory diagnosis : ACUITY: (X ) Acute ( ) Chronic ( ) Acute on Chronic TYPE: (X ) Respiratory failure with hypoxia ( ) Respiratory failure with hypercapnia ( ) Respiratory Arrest ( ) Postprocedural/postoperative respiratory failure ( ) Respiratory Insufficiency ( ) ARDS (Adult/Acute Respiratory Distress Syndrome) ( ) Other, please specify: Secondary to pulmonary edema secondary to congestive heart failure ( ) Clinically unable to determine Recognized criteria for respiratory failure PH <7.35 or >7.45 PO2 <60 PCO2 >50 RR >24 O2 Sat <90% on RA or <95% on O2 Use of accessory muscles Unable to speak in full sentences Intubation is not required COMMENTS: PLEASE ALSO DOCUMENT RESPONSE IN PROGRESS NOTES AND/OR DISCHARGE SUMMARY Use of terms such as suspected, likely, or probable (associated with a specific diagnosis that is being evaluated, monitored, or treated as if it exists) are acceptable and can be restated in the discharge summary if not ruled out. MTDD
[2017-08-26] MEDS: SODIUM CHLORIDE 0.45% 1,000 ML IV SCH (13:47)
--- NOTE | 2017-08-26 16:09 | Hospitalist Progress Note ---
Assessment and Plan (1) Coronary artery disease Status: Chronic Assessment and plan: Cardiac cath report noted. Current Visit: Yes Qualifiers: Coronary Disease-Associated Artery/Lesion type: bypass graft [place] vs. transplanted heart: [place] heart Associated angina: without angina Qualified Code(s): I25.810 - Atherosclerosis of coronary artery bypass graft(s) without angina pectoris (2) Ischemic cardiomyopathy Status: Chronic Assessment and plan: EF 45% with grade 2 diastolic dysfunction. Current Visit: Yes (3) Tobacco use disorder Status: Acute Current Visit: Yes (4) COPD (chronic obstructive pulmonary disease) Status: Chronic Current Visit: Yes Qualifiers: Emphysema type: unspecified (5) NEIL inhibitor intolerance Status: Chronic Current Visit: Yes Hospitalist: Subjective Interval history: Patient seen and examined. No acute events overnight. Case discussed with nursing staff. Labs reviewed. Exam - Constitutional Vitals: Period Temp Pulse Resp BP Sys/[place] Pulse Ox Last 24 Hr 86.8 F-98.7 F 50-92 16-26 107-149/66-83 91-99 Exam: Constitutional System: No distress. No tremulousness. Head: Normocephalic, atraumatic. Ears, Nose and Throat System: No pain or tenderness. No epistaxis or discharge Eyes System: Pupils equal, round, and reactive. Extraocular muscles intact. Neck: Supple, without adenopathy, No jugular venous distention. No thyromegaly, neck mass, or prior surgery apparent. Respiratory System: Chest clear to auscultation. Cardiovascular System: Heart with regular rate and rhythm. No murmur. GI System: Abdomen soft, nontender. Normo active bowel sounds present. Musculoskeletal System: limbs with no pedal edema. Full distal pulses. Normal capillary refill. Neurological System: No discernable sensory deficit. No aphasia Psychiatric System: Conversation is rational Results - Labs CBC & BMP: 08/26/17 03:29 08/26/17 03:29 Lab Results: I have reviewed the past 24 hour labs Specialty Discharge - Follow Up or Referrals
[2017-08-26 16:32] VITALS: BP 138/75
--- NOTE | 2017-08-26 16:33 | Discharge Summary ---
Hospital Course - Hospital Course Hospital Course: 62-year-old male admitted to the hospital with chest pain. He was seen in consultation by cardiology and has a known history of CAD. He underwent cardiac cath. The results of the cardiac cath are below: IMPRESSIONS: 1. Left main and three-vessel coronary artery disease as described above. 2. 2 of 3 bypass grafts are in the right coronary artery occluded. The left internal mammary artery graft to the left anterior descending artery is widely patent. 3. Moderate to severe aortic stenosis. Peak to peak gradient on this study was approximately 30 mmHg. 4. Mildly reduced left ventricular ejection fraction of approximately 45%. 5. Severe right iliofemoral arterial disease as described above. PLAN: At this time, the patient has diffuse coronary and peripheral vascular disease. For now, I am going to try to manage the patient with optimal medical therapy. I will discuss with him the possibility of needing an aortic valve procedure in the future. If he does get an aortic valve procedure revascularization of the ramus intermedius, obtuse marginal/circumflex, and right coronary arteries could be considered. He could also be considered for formal peripheral vascular studies and/or revascularization depending on his clinical symptoms. Smoking cessation and compliance will be addressed with the patient as well. Echocardiogram shows: Left ventricular ejection fraction is estimated at 50 %. There is limited endocardial resolution however in some views there may be mild inferior wall hypokinesis. Mild concentric left ventricular hypertrophy with Grade 2 diastolic dysfunction. Aortic valve area is 0.94 cm. Aortic valve mean gradient is 34 mmHg. Moderate aortic valve regurgitation with pressure halftime from 428 msec to 529 msec. Mild tricuspid valve regurgitation. Tricuspid regurgitation velocities suggest a RVSP of 23 mmHg + RAP He has been cleared for discharge by cardiology and has reached maximal benefit from this inpatient hospitalization. Smoking cessation counseling was given to the patient for 5 minutes. Medications were reviewed and reconciled. Hydrochlorthiazide was stopped and Lasix 40 mg daily was started. He has an appointment follow-up with cardiology in 1 month. - Time spent with patient Time with patient DS: Greater than 30 minutes (Total discharge time for this patient, including [id number] time, clinical documentation, medication reconciliation, and discharge planning was 35 minutes.) Diagnosis - Discharge Diagnosis (1) Coronary artery disease Status: Chronic (2) Ischemic cardiomyopathy Status: Chronic (3) Tobacco use disorder Status: Acute (4) COPD (chronic obstructive pulmonary disease) Status: Chronic (5) NEIL inhibitor intolerance Status: Chronic Specialty Discharge - Follow Up or Referrals Follow up with: Gabriela Regalado MD [Physician] - 1 Month Discharge Plan - Discharge Data Disposition: Disch To Home/Self Care Condition at Discharge: Stable Discharge Diet: advance to your usual diet Activity: resume usual activities as tolerated, increase activity as tolerated, no lifting Hygiene: no restrictions Weight Bearing at Discharge: full weight bearing Contact your physician if you experience:: fever over 101, Bleeding - Discharge Medications New Furosemide Tab [Lasix Tab] 40 mg PO DAILY #30 tablet Nicotine 21 mg/24 Hr Patch [Nicoderm CQ 21 mg/24 hr Patch] 1 patch TRANSDERM DAILY patch Continue hydrALAZINE TAB [Apresoline Tab] 25 mg PO TID amLODIPine [Norvasc] 10 mg PO DAILY Carvedilol [Coreg] 25 mg PO BID Aspirin [Ecotrin] 81 mg PO DAILY Albuterol Sulfate [Proair HFA] 2 puff INH Q4HR Isosorbide Mononitrate [Isosorbide Mononitrate ER] 60 mg PO DAILY Rosuvastatin [Crestor] 10 mg PO DAILY Discontinued hydroCHLOROthiazide [Hydrochlorothiazide] 25 mg PO DAILY - Follow Up or Referral Follow Up: Gabriela Regalado MD [Physician] - 1 Month - Forms/Instructions Instructions: Heart Failure (ED), Hypoxemia (GEN) Exam - Constitutional Vitals: Period Temp Pulse Resp BP Sys/[place] Pulse Ox Last 24 Hr 86.8 F-98.7 F 50-92 16-26 107-149/66-83 91-99 Discharge Results Labs on day of discharge: Labs from last 24 hours 08/26/17 08/26/17 03:29 03:29 WBC 6.1 RBC 4.10 Hgb 13.5 L Hct 38.6 L MCV 94.1 MCH 33 MCHC 35.0 RDW 15.3 Plt Count 243 MPV 10.8 Neut % (Auto) 46.8 Lymph % (Auto) 37.5 [place] % (Auto) 13.1 H Eos % (Auto) 2.0 Baso % (Auto) 0.3 Neut # (Auto) 2.9 Lymph # (Auto) 2.3 [place] # (Auto) 0.8 Eos # (Auto) 0.1 Baso # (Auto) 0.0 Immature Gran % 0.3 Nucleated RBC % 0.0 Immature Gran # 0.02 Nucleated RBCs # 0.00 Immature Plt Fraction 0.0 Sodium 141 Potassium 3.9 Chloride 106 Carbon Dioxide 28 Anion Gap 10.9 BUN 14 Creatinine 0.70 GFR Calculation 163 BUN/Creatinine Ratio 20.00 Glucose 88 Calculated Osmolality 280.3 Calcium 8.2 L Magnesium 1.8 DS: Provider Date of admission: 08/23/17 08:26 Primary care physician: Matt Deluna DO Attending physician on admission: Cristhian Mcpherson MD Consults: 08/23/17 09:39 Consult to Physician [CONS] Routine Comment: Consulting Provider: Mary Alice Paez Consult to Specialist Group: Pulmonology Discharging clinician: Rachel Baez MD Expected date of discharge: 08/26/17
--- NOTE | 2017-08-26 19:01 | Cardiology Progress Note ---
IMaxine April, RN, am scribing for, and in the presence of, Earl Blackman MD 19:00. Assessment and Plan (1) Congestive heart failure Status: Chronic Qualifiers: Congestive heart failure type: systolic Congestive heart failure chronicity : acute on chronic Qualified Code(s): I50.23 - Acute on chronic systolic ( congestive) heart failure (2) Nicotine dependence Status: Chronic (3) NEIL inhibitor intolerance Status: Chronic (4) Aortic insufficiency Status: Chronic (5) Aortic stenosis Status: Chronic Qualifiers: Cardiac valve disease etiology: nonrheumatic Qualified Code(s): I35.0 - Nonrheumatic aortic (valve) stenosis (6) COPD (chronic obstructive pulmonary disease) Status: Chronic Qualifiers: Emphysema type: unspecified (7) Coronary artery disease Status: Chronic Qualifiers: Coronary Disease-Associated Artery/Lesion type: bypass graft [place] vs. transplanted heart: [place] heart Associated angina: without angina Qualified Code(s): I25.810 - Atherosclerosis of coronary artery bypass graft(s) without angina pectoris (8) Dyslipidemia Status: Chronic (9) Hepatitis Status: Chronic (10) Ischemic cardiomyopathy Status: Chronic (11) Peripheral vascular disease Status: Chronic Cardiology - PN: Subj Interval history: Imaging Assistant: Dr. Regalado Mr. Wilcox is a 62-year-old male with known severe coronary artery disease. He presented for worsening dyspnea on exertion and shortness of breath he was admitted on August 23. He underwent cardiac catheterization on August 25 with the following findings and plan: 1. Left main and three-vessel coronary artery disease as described above. 2. 2 of 3 bypass grafts are in the right coronary artery occluded. The left internal mammary artery graft to the left anterior descending artery is widely patent. 3. Moderate to severe aortic stenosis. Peak to peak gradient on this study was approximately 30 mmHg. 4. Mildly reduced left ventricular ejection fraction of approximately 45%. 5. Severe right iliofemoral arterial disease as described above. PLAN: At this time, the patient has diffuse coronary and peripheral vascular disease. For now, I am going to try to manage the patient with optimal medical therapy. I will discuss with him the possibility of needing an aortic valve procedure in the future. If he does get an aortic valve procedure revascularization of the ramus intermedius, obtuse marginal/circumflex, and right coronary arteries could be considered. He could also be considered for formal peripheral vascular studies and/or revascularization depending on his clinical symptoms. Smoking cessation and compliance will be addressed with the patient as well. Mr. Wilcox is seen today resting in bed no acute distress. He denies any chest pain or shortness of breath. Right groin is soft without evidence of bleeding or hematoma, no bruit is appreciated. Vital signs have been stable. Creatinine this morning is stable at 0.70. He states he is ready to go home. He is stable to be discharged from a cardiac standpoint. He has follow-up with Dr. Regalado in October, we will move this appointment to 1 month out. Exam (Progress Note) - Constitutional Vitals: Period Temp Pulse Resp BP Sys/[place] Pulse Ox Last 24 Hr 86.8 F-98.7 F 50-92 16-26 107-149/66-83 91-99 General appearance: no acute distress, over weight - Head Head exam: Absent: abrasion, hematoma - Eye Eye exam: Absent: periorbital swelling, laceration to eyelids - Neck Neck exam: Absent: tenderness - Respiratory Respiratory exam: Present: clear to auscultation bilaterally. Absent: accessory muscle use, chest wall tenderness - Cardiovascular Cardiovascular exam: Present: bradycardia, regular rate and rhythm - GI/Abdominal GI/Abdominal exam: Present: normal bowel sounds, soft. Absent: distended, tenderness - Extremities Exam Extremities exam: Present: other (Right groin soft and without evidence of bleeding or hematoma, no bruit detected, good pedal pulses). Absent: calf tenderness, edema - Neurological Exam Neurological exam: Present: alert, oriented X3 - Psychiatric Psychiatric exam: Present: normal affect, normal mood - Skin Skin exam: Present: warm, dry Result/EKG - Labs CBC & BMP: 08/26/17 03:29 08/26/17 03:29 Lab Results: I have reviewed the past 24 hour labs Labs: Laboratory Results - last 24 hr 08/26/17 08/26/17 03:29 03:29 WBC 6.1 RBC 4.10 Hgb 13.5 L Hct 38.6 L MCV 94.1 MCH 33 MCHC 35.0 RDW 15.3 Plt Count 243 MPV 10.8 Neut % (Auto) 46.8 Lymph % (Auto) 37.5 [place] % (Auto) 13.1 H Eos % (Auto) 2.0 Baso % (Auto) 0.3 Neut # (Auto) 2.9 Lymph # (Auto) 2.3 [place] # (Auto) 0.8 Eos # (Auto) 0.1 Baso # (Auto) 0.0 Immature Gran % 0.3 Nucleated RBC % 0.0 Immature Gran # 0.02 Nucleated RBCs # 0.00 Immature Plt Fraction 0.0 Sodium 141 Potassium 3.9 Chloride 106 Carbon Dioxide 28 Anion Gap 10.9 BUN 14 Creatinine 0.70 GFR Calculation 163 BUN/Creatinine Ratio 20.00 Glucose 88 Calculated Osmolality 280.3 Calcium 8.2 L Magnesium 1.8 - EKG EKG results: interpreted by me EKG shows: bradycardia, sinus rhythm Specialty Discharge - Follow Up or Referrals Follow up with: Gabriela Regalado MD [Physician] - 09/25/17 1:20 pm Yehuda Sanchez Michael, MD, personally performed the services described in this documentation, ascribed by Mishel Goodman RN in my presence, and it is both accurate and complete [id number] .
== END 2017-08-26 17:40 | disposition home or self-care (01) | DRG 286 ==
LOC: N.ED 05:44 → SUATTDRO 08:26 → N.EDINP 08:26 → N.TELEN 09:16
PROVIDERS: ADMIT Internal Medicine Cardiovascular Disease; ATTEND Family Medicine